=== PATIENT | male | born 1970 | race Caucasian/White ===

== ENCOUNTER 2019-04-28 14:18 | Emergency (ER) | payer SELFPAY ==
[2019-04-28 14:51] VITALS: BP 131/101; PULSE 115; RESP 18; TEMP 36.4; O2SAT 99; BMI 30.5
== END 2019-04-28 14:59 | disposition left against medical advice (07) ==
LOC: ER 16:13
PROVIDERS: Emergency Provider Family Medicine; Family Provider Psychiatry & Neurology Neurology
DX: Z53.21 Procedure and treatment not carried out due to patient leaving prior to being seen by health care provider (principal)
CPT/HCPCS: 99281

== ENCOUNTER → 2020-02-06 14:05 | Outpatient (BNVA) | payer SELFPAY | PROVIDERS: Family Provider Psychiatry & Neurology Neurology; Visit Provider Family Medicine Adult Medicine | DX: B20 Human immunodeficiency virus [HIV] disease (principal); B00.9 Herpesviral infection, unspecified; N50.89 Other specified disorders of the male genital organs; I10 Essential (primary) hypertension; L98.9 Disorder of the skin and subcutaneous tissue, unspecified; F40.00 Agoraphobia, unspecified; F31.9 Bipolar disorder, unspecified; F20.9 Schizophrenia, unspecified; M15.9 Polyosteoarthritis, unspecified | CPT/HCPCS: 80053; 80061; 83036; 85025; 86592; 87491; 87530; 87591; G0103 ==

== ENCOUNTER → 2021-01-26 15:47 | Outpatient (BNVA) | payer OTHER, SELFPAY | PROVIDERS: Family Provider Psychiatry & Neurology Neurology; Visit Provider Nurse Practitioner Family | DX: Z20.822 Contact with and (suspected) exposure to COVID-19 (principal) | CPT/HCPCS: 87635 ==

== ENCOUNTER 2021-10-29 12:26 | Emergency (ER) | payer MEDICAID, SELFPAY ==
[2021-10-29 12:31] VITALS: BP 151/96; PULSE 84; RESP 16; TEMP 36.4; O2SAT 99
--- NOTE | 2021-10-29 12:32 | XRR_ITS ---
PROCEDURE INFORMATION: Exam: XR Chest Exam date and time: 10/29/2021 12:50 PM Age: 51 years old Clinical indication: Other: CVA; Patient HX: Left sided weakness began today TECHNIQUE: Imaging protocol: Radiologic exam of the chest. Views: 1 view. COMPARISON: CR Chest 1 [place] [id number] 01/03/2018 9:53 AM FINDINGS: Lungs: Unremarkable. No consolidation. Pleural spaces: Unremarkable. No pleural effusion. No pneumothorax. Heart/Mediastinum: Unremarkable. No cardiomegaly. Bones/joints: Unremarkable. XR/XR chest 1V portable [id number] IMPRESSION: No acute findings.
--- NOTE | 2021-10-29 12:33 | CTR_ITS ---
PROCEDURE INFORMATION: Exam: CT Head Without Contrast Exam date and time: 10/29/2021 12:34 PM Age: 51 years old Clinical indication: Stroke-like symptoms; Other: Left side weakness; Additional info: Symptoms of acute stroke TECHNIQUE: Imaging protocol: Computed tomography of the head without contrast. Radiation optimization: All CT scans at this facility use at least one of these dose optimization techniques: automated exposure control; mA and/or kV adjustment per patient size (includes targeted exams where dose is matched to clinical indication); or iterative reconstruction. Other technique: STROKE PROTOCOL was implemented. COMPARISON: No relevant prior studies available. RADIATION DOSE METRICS: Total DLP (mGy-cm): 1127.88 FINDINGS: Brain: Normal. No hemorrhage. Unremarkable white matter. No mass effect. No evidence for large acute ischemic infarction. Please note acute ischemia can be occult by head CT. Cerebral ventricles: No ventriculomegaly. Paranasal sinuses: Visualized sinuses are unremarkable. No fluid levels. Mastoid air cells: Visualized mastoid air cells are well aerated. Bones/joints: Unremarkable. No acute fracture. Soft tissues: Unremarkable. CT/CT head wo con* [id number] IMPRESSION: No acute intracranial abnormality. ASSESSMENT: ASPECTS ([place] Stroke Program Early CT Score) is 10. Please note acute ischemia can be occult by head CT. MRI with diffusion-weighted images is recommended for further evaluation if occult acute infarct is suspected.
--- NOTE | 2021-10-29 12:42 | ED_ITS ---
HPI - Neuro Symptoms/Deficit General: Chief Complaint: Neuro Symptoms/Deficit Stated Complaint: Left side of pain Time Seen by Provider: 10/29/21 12:31 Source: patient Mode of arrival: ambulatory Limitations: no limitations History of Present Illness: 51-year-old male states that 1130 he states that he is having left-sided weakness and trouble speaking states having weakness in his arm and left leg with tingling on that side. States that he has had some word finding difficulties at times hears speech seems clear to me he is able answer all my questions appropriately he denies any acute headaches denies any history of stroke he is not on any blood thinners denies any chest pain. Associated symptoms: Deny chest pain, nausea or vomiting Review of Systems Const: Denies: fever(s), chills, body aches or change in appetite Eyes: Denies: blurry vision or eye discomfort ENMT: Denies: throat pain or dental pain Card: Denies: chest pain Resp: Denies: dyspnea GI: Denies: abdominal pain, nausea, vomiting or diarrhea : Denies: dysuria Musc: Denies: neck pain or back pain Skin/Breast: Denies: rash Neuro: Reports: weakness in extremities and Slurred speech present Psych: Denies: depression River/Lymph: Denies: easy bruising All/Imm: Denies: urticaria PFSH ED PFSH: Medical History Agoraphobia Bipolar 1 disorder 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 Genital condyloma, male Genital herpes in men Hepatitis C Hypertension Insomnia disorder related to known organic factor Obesity (BMI 30.0-34.9) Oral herpes simplex infection Osteoarthritis involving multiple joints on both sides of body Positive RPR test Schizophrenia Tear meniscus knee Surgical History History of back surgery Hx of knee surgery Social History Smoking and tobacco status: current every day smoker cigarettes Packs smoked per day: 4 Alcohol intake: former Household members: family Current occupational status: unemployed History of recent travel: No NIH stroke score NIHSS: Level Of Consciousness - 1a: 0 Level Of Consciousness Questions - 1b: Both Correct Level Of Consciousness Commands - 1c: Both Correct Best Gaze - 2: Normal Visual Jasmine - 3: No Visual Loss Facial Palsy - 4: Normal Motor Arm Right - 5: No Drift Motor Arm Left - 5: Drift Motor Leg Right - 6: No Drift Motor Leg Left - 6: Drift Limb Ataxia - 7: Absent Sensory - 8: Mild To Moderate Loss Best Language - 9: No Aphasia Dysarthia - 10: Mild/Moderate Dysarthia Extinction And Inattention - 11: 0 Score: Total Score: 4 Physical Exam Const: COMMON NORMALS: patient oriented x3 and alert ORIENTATION/CO NSCIOUSNESS: Yes oriented to person and Yes oriented to place HENMT: COMMON NORMALS: normocephalic and atraumatic HEAD & SCALP: normocephalic and atraumatic Eye: COMMON NORMALS: Equal, round and reactive pupils present and EOMs intact bilaterally PUPIL: Yes Equal, round and reactive pupils present Neck/C-Spine: COMMON NORMALS: full ROM and supple Chest: COMMONS NORMALS: normal inspection of the chest and normal palpation of entire chest wall Resp: COMMON NORMALS: normal respiratory effort, No retractions, No use of accessory muscles and clear to auscultation bilaterally AUSCULTATION: clear to auscultation bilaterally Cardio: COMMON NORMALS: regular rate, regular rhythm and No murmurs present (Cardio) RATE: regular rate RHYTHM: regular rhythm GI: COMMON NORMALS: Normal to inspection, nondistended, normoactive bowel sounds present, Soft to palpation, non-tender and no masses PALPATION: Yes Soft to palpation Extremity: COMMON NORMALS: normal to inspection and full ROM Neuro: COMMON NORMALS: patient oriented x3, moves all extremities and no focal motor deficits SENSORIUM/ORIENTATION: Yes alert, Yes oriented to person and Yes oriented to place OTHER: left sided weakness Psych: COMMON NORMALS: mental status grossly normal, Normal thought process present and cooperative THOUGHT PROCESS: Normal thought process present Skin: COMMON NORMALS: no rashes or lesions noted and no wounds GENERAL SKIN EXAM: no rashes or lesions noted Course Vital Signs: Vital signs: Vital Signs Temperature 97.6 F 10/29/21 12:31 Pulse Rate 81 10/29/21 13:25 Respiratory Rate 20 H 10/29/21 13:25 Blood Pressure 146/98 10/29/21 13:25 Pulse Oximetry 94 10/29/21 13:25 Oxygen Delivery Me thod 10/29/21 13:25 MDM - Neuro Symptoms/Deficit Medical Decision Making Patient presents here with concerns of a stroke. He does have some left-sided weakness its improved slightly since he has been here he has been able to have more strength in his left side and his speech is improved. I did have him evaluated by [facility] who recommended tPA. I discussed with him at length tPA he initially agreed to the tPA informed him that we would have to admit him here overnight or transfer him to a facility with neurology after he gave the tPA. He informed me that he cannot stay in the hospital whatsoever and is now refusing the tPA. I informed him that I am concerned that he has had an actual stroke and would recommend tPA and that his symptoms could worsen and he could even have further debilitation or even . He understands this and states that he has stuff he needs to do and he refuses tPA and admission and signed out AGAINST MEDICAL ADVICE he does have medical decision-making opacity here informed him if he worsens or changes mind he is return he understands and agrees. Lab Data : 10/29/21 12:49 10/29/21 12:49 Radiology Impressions Chest X-Ray 10/29/21 12:32 IMPRESSION: No acute findings. Head CT 10/29/21 12:33 IMPRESSION: No acute intracranial abnormality. ASSESSMENT: ASPECTS ([place] Stroke Program Early CT Score) is 10. Please note acute ischemia can be occult by head CT. MRI with diffusion-weighted images is recommended for further evaluation if occult acute infarct is suspected. Laboratory Results WBC 5.1 10^3/uL (4.0-10.0) 10/29/21 12:49 RBC 4.53 10^6/uL (4.1-5.3) 10/29/21 12:49 Hgb 13.3 g/dL (11.7-16.6) 10/29/21 12:49 Hct 41.2 % (42.0-52.0) L 10/29/21 12:49 MCV 90.9 fl (80-94) 10/29/21 12:49 MCH 29.4 pg (28.0-34.0) 10/29/21 12:49 MCHC 32.3 g/dL (30.0-36.0) 10/29/21 12:49 RDW 12.6 % (12.1-15.1) 10/29/21 12:49 Plt Count 290 10^3/cmm (130-400) 10/29/21 12:49 MPV 9.2 fL (7.4-10.4) 10/29/21 12:49 Neut % (Auto) 49.2 % 10/29/21 12:49 Lymph % (Auto) 39.7 % 10/29/21 12:49 Anderson % (Auto) 7.6 % 10/29/21 12:49 Eos % (Auto) 3.1 % 10/29/21 12:49 Baso % (Auto) 0.4 % 10/29/21 12:49 Neut # (Auto) 2.51 10^3/uL (1.8-7.7) 10/29/21 12:49 Lymph # (Auto) 2.0 10^3/uL (0.8-4.8) 10/29/21 12:49 Anderson # (Auto) 0.4 10^3/uL (0.2-0.9) 10/29/21 12:49 Eos # (Auto) 0.2 10^3/uL (0.0-0.8) 10/29/21 12:49 Baso # (Auto) 0.0 10^3/uL (0.0-0.1) 10/29/21 12:49 Nucleated RBC % (auto) 0 % 10/29/21 12:49 Nucleated RBCs # 0.0 /100WBC 10/29/21 12:49 PT 12.40 SECONDS (12.1-14.9) 10/29/21 12:49 INR 0.90 (0.8-1.2) 10/29/21 12:49 APTT 28.4 SECONDS (23.9-36.7) 10/29/21 12:49 Sodium 142 mmol/L (136-145) 10/29/21 12:49 Potassium 3.7 mmol/L (3.5-5.1) 10/29/21 12:49 Chloride 105 mmol/L (98-107) 10/29/21 12:49 Carbon Dioxide 28 mmol/L (22-29) 10/29/21 12:49 Anion Gap 12.7 (5-19) 10/29/21 12:49 BUN 12 mg/dL (6-20) 10/29/21 12:49 Creatinine 0.5 mg/dL (0.7-1.2) L 10/29/21 12:49 GFR Calculation 176.7 mL/min (90-130) H 10/29/21 12:49 Glucose 78 mg/dL (65-115) 10/29/21 12:49 Calculated Osmolality 293 mOsm/kg (285-295) 10/29/21 12:49 Calcium 8.5 mg/dL (8.5-10.5) 10/29/21 12:49 Total Bilirubin 0.4 mg/dL (0.15-1.2) 10/29/21 12:49 AST 10 U/L (0-40) 10/29/21 12:49 ALT 11 U/L (0-41) 10/29/21 12:49 Alkaline Phosphatase 75 IU/L (40-130) 10/29/21 12:49 Total Protein 6.1 g/dL (6.6-8.7) L 10/29/21 12:49 Albumin 4.0 g/dL (3.5-5.2) 10/29/21 12:49 Globulin 2.1 g/dL (1.3-4.6) 10/29/21 12:49 EKG Data EKG 1: I personally reviewed and interpreted this EKG as follows: EKG interpretation date: 10/29/21 EKG interpretation time: 13:02 Interpretation: ansr hr [address] or t wave abnormalities qrs 89 qtc 420 Discharge Plan Discharge Patient Disposition: Left Against Medical Advice Clinical Impression: Cerebrovascular accident Qualifiers: CVA mechanism: unspecified Qualified Code(s): I63.9 - Cerebral infarction, un specified Condition: Stable Prescriptions: No Action methadone 10 mg Tablet 75 mg PO DAILY Referrals: Billy Cates MD [Primary Care Provider] - Coding Level of Care Code ED Exercise Science Internship for Chg Fwd Exam Comprehensive
[2021-10-29 12:57] LABS: Basophils % 0.4 %; Eosinophils # 0.2 10^3/uL (0.0-0.8); Eosinophils % 3.1 %; Hematocrit 41.2 % (42.0-52.0); Hemoglobin 13.3 g/dL (11.7-16.6); Lymphocytes % 39.7 %; Mean Corpuscular HGB Conc 32.3 g/dL (30.0-36.0); Mean Corpuscular Hemoglobin 29.4 pg (28.0-34.0); Mean Corpuscular Volume 90.9 fl (80-94); Mean Platelet Volume 9.2 fL (7.4-10.4); Monocytes # 0.4 10^3/uL (0.2-0.9); Monocytes % 7.6 %; Neutrophils # 2.51 10^3/uL (1.8-7.7); Neutrophils % 49.2 %; Nucleated Red Blood Cells % 0 %; Platelet Count 290 10^3/cmm (130-400); Red Blood Count 4.53 10^6/uL (4.1-5.3); Red Cell Distribution Width 12.6 % (12.1-15.1); White Blood Count 5.1 10^3/uL (4.0-10.0)
--- NOTE | 2021-10-29 13:02 | ECG_ITS ---
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 Measurements Intervals [place] Rate: 82 P: 33 LA: 158 QRS: 19 QRSD: 89 T: 48 QT: 381 QTc: 446 Interpretive Statements SINUS RHYTHM WITH OCCASIONAL SUPRAVENTRICULAR PREMATURE COMPLEXES NONSPECIFIC ST & T-WAVE ABNORMALITY Compared to ECG 01/03/2018 09:29:29 Sinus tachycardia no longer present T-wave abnormality still present Electronically Signed On 10-29-2021 20:31:42 CDT by Finn Woodard M.D. [id number]
[2021-10-29 13:09] LABS: Partial Thromboplastin Time 28.4 SECONDS (23.9-36.7)
[2021-10-29 13:18] LABS: Alanine Aminotransferase 11 U/L (0-41); Alkaline Phosphatase 75 IU/L (40-130); Anion Gap 12.7 (5-19); Aspartate Amino Transferase 10 U/L (0-40); Blood Urea Nitrogen 12 mg/dL (6-20); Calcium 8.5 mg/dL (8.5-10.5); Carbon Dioxide 28 mmol/L (22-29); Chloride 105 mmol/L (98-107); Globulin 2.1 g/dL (1.3-4.6); Glomerular Filtration Rate 176.7 mL/min (90-130); Glucose 78 mg/dL (65-115); Osmolality Calculated 293 mOsm/kg (285-295); Potassium 3.7 mmol/L (3.5-5.1); Sodium 142 mmol/L (136-145); Total Bilirubin 0.4 mg/dL (0.15-1.2); Total Protein 6.1 g/dL (6.6-8.7)
[2021-10-29 13:25] VITALS: BP 146/98; PULSE 81; RESP 20; O2SAT 94
--- NOTE | 2021-10-29 13:25 | PC.NURSE ---
Physician at bedside to discuss with patient transferring to higher level of care. Patient immediately became agitated stated he would not be transferring to another facility and to take this stuff off of me . Patient will be signed out AMA. Pt is A/O x4. Moving all extremities without difficulty, speech is clear. Neuro defecits are not noted at this time
[2021-10-29 13:56] LABS: Glucose Point of Care 82 mg/dL (70-110)
== END 2021-10-29 13:42 | disposition left against medical advice (07) ==
PROVIDERS: Emergency Provider Emergency Medicine; PCP Family Medicine Adult Medicine
DX: I63.9 Cerebral infarction, unspecified (principal); Z79.891 Long term (current) use of opiate analgesic; Z86.19 Personal history of other infectious and parasitic diseases; I10 Essential (primary) hypertension; F17.210 Nicotine dependence, cigarettes, uncomplicated
CPT/HCPCS: 36416; 70450; 71045; 80053; 82962; 85025; 85610; 85730; 93005; 99285

== ENCOUNTER 2021-12-17 17:55 | Emergency (ER) | payer OTHER, SELFPAY ==
[2021-12-17 18:06] VITALS: BP 162/105; PULSE 87; RESP 16; TEMP 36.4; O2SAT 100
--- NOTE | 2021-12-17 18:38 | XRR_ITS ---
PROCEDURE INFORMATION: Exam: XR Left Knee Exam date and time: 12/17/2021 6:54 PM Age: 51 years old Clinical indication: Pain and injury or trauma; Work related; Blunt trauma; Knee; Left; Injury date: 12/17/2021; Patient HX: Fall at work per PT TECHNIQUE: Imaging protocol: Radiologic exam of the Left knee. Views: 3 views. COMPARISON: No relevant prior studies available. FINDINGS: Bones/joints: Moderate sized suprapatellar joint effusion. There are tricompartmental primary osteoarthritic changes in the knee including marginal osteophyte formations and subchondral cystic/sclerotic changes. Mild narrowing of the medial joint compartment space. Soft tissues: Normal. XR/XR knee LT 3V* [id number] IMPRESSION: 1. Moderate sized suprapatellar joint effusion. 2. There are tricompartmental primary osteoarthritic changes in as described above.
--- NOTE | 2021-12-17 18:38 | XRR_ITS ---
PROCEDURE INFORMATION: Exam: XR Left Wrist Exam date and time: 12/17/2021 7:01 PM Age: 51 years old Clinical indication: Pain and injury or trauma; Work related; Numbness and other: Pain post fall; Wrist; Left; Blunt trauma (contusions or hematomas); Injury date: 12/17/2021; Injury details: Fall at work per PT TECHNIQUE: Imaging protocol: Radiologic exam of the Left wrist. Views: 1 or 2 views. COMPARISON: CR (UP EX, ) 12/17/2021 6:58 PM FINDINGS: Bones/joints: There are small subchondral cysts in the lunate and triquetrum across the radiocarpal joint. Soft tissues: Normal. XR/XR wrist LT 2V [id number] IMPRESSION: Small subchondral cysts in the lunate and triquetrum across the radiocarpal joint are consistent with primary osteoarthritic change. No evidence for acute fracture.
--- NOTE | 2021-12-17 18:38 | XRR_ITS ---
PROCEDURE INFORMATION: Exam: XR Left Forearm Exam date and time: 12/17/2021 6:58 PM Age: 51 years old Clinical indication: Pain and injury or trauma; Work related; Other: Pain post fall; Blunt trauma (contusions or hematomas); Arm, lower; Left; Lower or forearm; Patient HX: Fall at work per PT TECHNIQUE: Imaging protocol: Radiologic exam of the Left forearm. Views: 2 views. COMPARISON: No relevant prior studies available. FINDINGS: Bones/joints: Normal. Soft tissues: Normal. XR/XR forearm LT 2V [id number] IMPRESSION: No acute findings.
--- NOTE | 2021-12-17 20:19 | ED_ITS ---
HPI - Fall General: Chief Complaint: Fall Stated Complaint: Fall, left arm and knee pain Time Seen by Provider: 12/17/21 18:12 History of Present Illness: 51-year-old male patient is in today for complaints of knee pain and arm pain. He reports that he was at work and he slipped on ice walking towards the cooler and fell onto the left side of his body. He reports that he has significant left-sided knee pain and left wrist/forearm pain. He reports his knee is way worse. He denies hitting his head or having any loss of consciousness. 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 Genital condyloma, male Genital herpes in men Hepatitis C Hypertension Insomnia disorder related to known organic factor Obesity (BMI 30.0-34.9) Oral herpes simplex infection Osteoarthritis involving multiple joints on both sides of body Positive RPR test Schizophrenia Tear meniscus knee Surgical History History of back surgery Hx of knee surgery Social History Smoking and tobacco status: current every day smoker cigarettes Packs smoked per day: 4 Alcohol intake: former Household members: family Current occupational status: unemployed History of recent travel: No Physical Exam Const: COMMON NORMALS: patient oriented x3 and alert Resp: COMMON NORMALS: normal respiratory effort, No use of accessory muscles and clear to auscultation bilaterally AUSCULTATION: clear to auscultation bilaterally Cardio: COMMON NORMALS: regular rate, regular rhythm, S1 normal heart sound present, S2 normal heart sound present and No murmurs present (Cardio) RATE: regular rate RHYTHM: regular rhythm HEART SOUNDS: S1 normal heart sound present and S2 normal heart sound present Extremity: NARRATIVE EXTREMITY EXAM: Tenderness to palpation left wrist without any obvious bony or soft tissue deformity. Patient has full range of motion. Patient can flex and extend the hand and fingers. Radial and ulnar pulses are palpable and strong. OTHER: Tenderness to palpation to the left knee. There is tenderness mostly over the patella. There is some fluid effusion appreciated. No obvious bony or soft tissue deformity. Patient has limited range of motion on exam due to pain. CSM within normal limits. Neuro: COMMON NORMALS: patient oriented x3 SENSORIUM/ORIENTATION: Yes alert Course Vital Signs: Vital signs: Vital Signs Temperature 97.8 F 12/17/21 20:40 Pulse Rate 79 12/17/21 20:40 Respiratory Rate 17 12/17/21 20:40 Blood Pressure 179/104 12/17/21 20:40 Pulse Oximetry 97 12/17/21 20:40 Oxygen Delivery Me thod 12/17/21 18:06 MDM - Fall Medical Decision Making This is a 51-year-old male that was injured at work today walking through the cooler when he slipped on ice. X-rays are done of his left wrist and forearm which do not show any acute or chronic fracture. Wrist x-ray does show a small subchondral cyst in the lunate and triquetrum across the radiocarpal joint consistent with primary osteoarthritic changes. X-ray of the knees shows moderate sized suprapatellar joint effusion and tricompartmental primary osteoarthritic changes. Advised patient of results of x-rays. Discussed conservative treatments at home. Offered patient Toradol injection however he is a recovering IV drug abuser and does not want any needles if possible. Provide patient with 800 mg ibuprofen to take p.o. at home. Advised him to rest, ice, elevate the extremities. Follow-up with primary care provider next week for reevaluation. Return to the ER for any new or worsening symptoms. Patient verbalized understanding of all instruction. Questions answered to satisfaction Lab Data Radiology Impressions Forearm X-Ray 12/17/21 18:38 IMPRESSION: No acute findings. Knee X-Ray 12/17/21 18:38 IMPRESSION: 1. Moderate sized suprapatellar joint effusion. 2. There are tricompartmental primary osteoarthritic changes in as described above. Wrist X-Ray 12/17/21 18:38 IMPRESSION: Small subchondral cysts in the lunate and triquetrum across the radiocarpal joint are consistent with primary osteoarthritic change. No evidence for acute fracture. Discharge Plan Discharge Patient Disposition: Home Clinical Impression: Effusion of knee joint, left, Contusion of left wrist, Contusion of knee, left Condition: Stable Prescriptions: New ibuprofen 800 mg tablet 800 mg PO Q8H PRN (Reason: pain) 5 Days Qty: 15 0RF No Action methadone 10 mg Tablet 75 mg PO DAILY Discharge Orders: Discharge ED (Routine); Ordered 12/17/21 Ordered By: Belgica Walsh Referrals: Billy Cates MD [Primary Care Provider] - Discharge Diet: Usual diet Discharge Activity: Limit activity as instructed Patient Instructions: Swollen Knee Joint (ED) Activity Restrictions/Additional Instructions: You can utilize ibuprofen 800 mg 3 times a day as needed for pain. Use the knee immobilizer and crutches to minimize weightbearing on that knee for the next 3 to 5 days. Then slowly advance weightbearing as tolerated. Sure to ice, rest, elevate the knee. Follow-up with primary care provider next week. Return to the ER as needed for new or worsening symptoms. Coding Level of Care Code ED Computer Systems Architect for Zainab Zepeda
[2021-12-17 20:40] VITALS: BP 179/104; PULSE 79; RESP 17; TEMP 36.6; O2SAT 97
== END 2021-12-17 20:45 | disposition home or self-care (01) ==
PROVIDERS: Emergency Provider Nurse Practitioner Family; PCP Family Medicine Adult Medicine
DX: S60.212A Contusion of left wrist, initial encounter (principal); S80.02XA Contusion of left knee, initial encounter; M85.68 Other cyst of bone, other site; M25.462 Effusion, left knee; M17.12 Unilateral primary osteoarthritis, left knee; I10 Essential (primary) hypertension; F17.210 Nicotine dependence, cigarettes, uncomplicated; W00.0XXA Fall on same level due to ice and snow, initial encounter
CPT/HCPCS: 29530; 73090; 73100; 73562; 99283; E0114

== ENCOUNTER 2022-11-17 07:47 | Emergency (ER) | payer MEDICAID, SELFPAY ==
[2022-11-17 07:52] VITALS: BMI 28.7
[2022-11-17 07:56] VITALS: BP 179/112; PULSE 90; RESP 18; TEMP 36.9; O2SAT 93
--- NOTE | 2022-11-17 07:57 | W.ED.WOUNDLC ---
HPI - Wound/Laceration General: Chief Complaint: Wound/Laceration Stated Complaint: Lac on Left Arm Time Seen by Provider: 11/17/22 07:51 Source: patient Mode of arrival: ambulatory Limitations: no limitations History of Present Illness: Patient is a 52-year-old male who presents to ED today for evaluation and treatment of a left forearm laceration that he sustained just prior to arrival while at work after cutting it with a paring knife. He states he works at [employer] and this is a Worker's Comp injury. He denies numbness/tingling to the extremity. Bleeding controlled. Tetanus up-to-date. 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 condyloma, male Genital herpes in men Hepatitis C Hypertension Insomnia disorder related to known organic factor Obesity (BMI 30.0-34.9) Oral herpes simplex infection Osteoarthritis involving multiple joints on both sides of body Osteoarthritis of left knee Positive RPR test Schizophrenia Tear meniscus knee Surgical History History of back surgery Hx of knee surgery Social History Smoking and tobacco status: current every day smoker cigarettes Packs smoked per day: 4 Alcohol intake: former Substance/Drug Use: current Substance/Drug use frequency: daily Household members: family Current occupational status: unemployed Physical Exam Const: COMMON NORMALS: no acute distress, patient oriented x3, no limitations, alert and well nourished GENERAL APPEARANCE: cooperative Extremity: COMMON NORMALS: full ROM, capillary refill normal, no joint enlargement and no clubbing, cyanosis or edema GENERAL: Yes normal exam except as noted LEFT UPPER EXTREMITY: Yes lower arm (2.0 cm laceration volar forearm; no bleeding; no tendon involvement) Left lower arm: Yes neurovascular exam (normal) Neuro: COMMON NORMALS: patient oriented x3, moves all extremities, no focal motor deficits and no sensory deficits noted SENSORIUM/ORIENTATION: Yes alert Skin: TRAUMA: laceration Course Vital Signs: Vital signs: Vital Signs Temperature 98.5 F 11/17/22 07:56 Pulse Rate 90 11/17/22 07:56 Respiratory Rate 18 11/17/22 07:56 Blood Pressure 179/112 11/17/22 07:56 Pulse Oximetry 93 11/17/22 07:56 Oxygen Delivery Me thod Room Air 11/17/22 07:56 MDM - Wound/Laceration Medical Decision Making Wound copiously irrigated and repaired as documented. No tendon or apparent nerve involvement at this time. Worker's Comp. paperwork completed. He will follow-up with them. His tetanus is up-to-date. Wound care/infection precautions discussed. Discharge Plan Discharge Patient Disposition: Home Clinical Impression: Laceration of left forearm Qualifiers: Encounter type: initial encounter Qualified Code(s): S51.812A - Laceration without foreign body of left forearm, initial encounter Condition: Stable Prescriptions: No Action methadone 40 mg Tablet,Soluble 105 mg PO DAILY Discharge Orders: Discharge ED (Routine); Ordered 11/17/22 Ordered By: Peace Quintana Referrals: Billy Cates MD [Primary Care Provider] - Patient Instructions: Care For Your Stitches (DC), Laceration (DC) Activity Restrictions/Additional Instructions: Keep wound/laceration clean with warm soap and water twice daily. Monitor for signs of infection such as redness, swelling, increased pain, or drainage. Please seek medical re-evaluation if these occur. If you received sutures today these will need to be removed (unless you were told by the provider that they are absorbable). The provider should have discussed with you the length of time until removal-7 TO 10 DAYS. You may return to the emergency department for this service. Coding Level of Care Code ED Vp Compliance for Zainab Zepeda
[2022-11-17 08:50] VITALS: BP 179/112; PULSE 90; RESP 18; O2SAT 93
== END 2022-11-17 08:59 | disposition home or self-care (01) ==
PROVIDERS: Emergency Provider Physician Assistant; PCP Family Medicine Adult Medicine
DX: S51.812A Laceration without foreign body of left forearm, initial encounter (principal); Z86.19 Personal history of other infectious and parasitic diseases; I10 Essential (primary) hypertension; F17.210 Nicotine dependence, cigarettes, uncomplicated; W26.0XXA Contact with knife, initial encounter; Y92.233 Cafeteria of hospital as the place of occurrence of the external cause; Y99.0 Civilian activity done for income or pay
CPT/HCPCS: 12001; 99282

== ENCOUNTER → 2024-04-29 16:18 | Outpatient (BNVA) | payer MEDICAID, SELFPAY | PROVIDERS: PCP Family Medicine Adult Medicine; Visit Provider Emergency Medicine | DX: M25.562 Pain in left knee (principal); M17.12 Unilateral primary osteoarthritis, left knee | CPT/HCPCS: 73562 ==